=== PATIENT | female | born 1985 | race Caucasian/White ===

== ENCOUNTER 2017-05-06 00:42 | Emergency (ER) | payer MEDICAID ==
[~2017-05-06] VITALS: Ht 157.5 cm; Wt 86.2 kg
[2017-05-06 00:45] VITALS: BP 130/80
[2017-05-06 00:52] VITALS: BP 130/80
--- NOTE | 2017-05-06 00:52 | NUR ---
TO LOBBY, MARGARITA BORDEN, A/W BED, NATE NOTED
--- NOTE | 2017-05-06 05:03 | NUR ---
PT TO OF [facility]
--- NOTE | 2017-05-06 05:05 | NUR ---
PATIENT PRESENTS TO ED WITH C/O BODYACHES X 1 WEEK PT DENIES N/V/D; SKIN IS PINK/WARM/DRY; AAOX4 WITH EVEN AND STEADY GAIT; LUNGS CLEAR BL; HR EVEN AND REGULAR; PT DENIES ANY CP OR SOB AT THIS TIME; PATIENT STATES PAIN OF 10/10 AT THIS TIME; VSS; PATIENT POSITIONED FOR COMFORT; HOB ELEVATED; BEDRAILS UP X2; BED DOWN. ER MD MADE AWARE OF PT STATUS.
[2017-05-06] MEDS ORDERED: KETOROLAC 60 MG/2 ML VIAL IM ONE (06:50)
[2017-05-06] MEDS ORDERED: guaiFENesin/CODEINE 100/10MG 5 ML UDC PO ONE (06:50)
--- NOTE | 2017-05-06 07:00 | NUR ---
Patient discharged with v/s stable. Written and verbal after care instructions given and explained. Patient alert, oriented and verbalized understanding of instructions. Ambulatory with steady gait. All questions addressed prior to discharge. ID band removed. Patient advised to follow up with PMD. Rx of MOTRIN, CODEINE PHOSPHATE AND TYLENOL given. Patient educated on indication of medication including possible reaction and side effects. Opportunity to ask questions provided and answered.
== END 2017-05-06 07:01 | disposition home or self-care (01) ==
LOC: MED 00:42
DX: J11.1 Influenza due to unidentified influenza virus with other respiratory manifestations (principal); J02.9 Acute pharyngitis, unspecified
CPT/HCPCS: 96372; 99283; J1885